=== PATIENT | male | born 1955 | race Caucasian/White ===

== ENCOUNTER 2016-06-25 16:20 | Emergency (ER) | payer BC ==
[~2016-06-25] VITALS: Ht 165.1 cm; Wt 73.5 kg
[2016-06-25 16:34] VITALS: BP_SYST 132
== END 2016-06-25 18:30 | disposition home or self-care (01) ==
LOC: SED 16:20
DX: S01.312A Laceration without foreign body of left ear, initial encounter (principal); S00.12XA Contusion of left eyelid and periocular area, initial encounter; Y04.0XXA Assault by unarmed brawl or fight, initial encounter; Y93.89 Activity, other specified; Y99.8 Other external cause status; Y92.89 Other specified places as the place of occurrence of the external cause
CPT/HCPCS: 99283